=== PATIENT | male | born 1955 | race African-American/Black ===

== ENCOUNTER 2020-04-13 20:35 | Emergency (ER) | payer SELFPAY ==
[~2020-04-13] VITALS: Ht 177.8 cm; Wt 77.0 kg
[~2020-04-13 20:35] MED LIST: ALBUTEROL
[2020-04-13 20:42] VITALS: BP 140/68
[2020-04-13] MEDS ORDERED: TETANUS AND DIPHTHERIA TOX/PF 0.5ML SYR (ADULT) IM ONE (21:15)
[2020-04-13] MEDS ORDERED: TETANUS, DIPHTHERIA, PERTUSSIS VAC/PF 0.5ML (>7YR OLD) IM ONE (21:15)
== END 2020-04-13 21:38 | disposition left against medical advice (07) ==
LOC: ER 20:35
DX: S50.312A Abrasion of left elbow, initial encounter (principal); S69.91XA Unspecified injury of right wrist, hand and finger(s), initial encounter; S60.511A Abrasion of right hand, initial encounter; W01.0XXA Fall on same level from slipping, tripping and stumbling without subsequent striking against object, initial encounter; Y93.89 Activity, other specified; Y92.89 Other specified places as the place of occurrence of the external cause; Y99.8 Other external cause status
CPT/HCPCS: 90714; 99283